=== PATIENT | male | born 1965 | race Caucasian/White ===

== ENCOUNTER 2022-02-03 09:59 | Emergency (ER) | payer SELFPAY ==
[~2022-02-03] VITALS: Ht 182 cm; Wt 77.0 kg
[~2022-02-03 09:59] MED LIST: CEPH500C PO; LISINOPRIL-HCTZ; MTF500T PO
[2022-02-03] MEDS ORDERED: LIDOCAINE/EPI 1%-1:100,000 (XYLOCAINE) 10 ML INJ ONE (10:30)
[2022-02-03] MEDS ORDERED: LIDOCAINE/EPI 1%-1:100,000 (XYLOCAINE) 10 ML ONE (10:53)
--- NOTE | 2022-02-03 11:39 | ED General ---
General Chief Complaint: Laceration Stated Complaint: LIP LAC Nursing Triage Note: pt states he was cutting some metal and a piece flew up and hit him in the lip, 1 cm lac on lower lip and a smaller puncture wound on upper lip, pt has false teeth. Source of Information: Patient Exam Limitations: No Limitations History of Present Illness Date Seen by Provider: Feb 03, 2022 Time Seen by Provider: 10:10 Initial Comments This is a 56-year-old gentleman presents to the emergency room with injury to his upper and lower lip on the right. He was cutting some quarter inch metal when a chunk flew off and struck him in the face causing the lacerations. He reports being up-to-date on his tetanus immunizations. There is no significant bleeding at time of arrival. He denies any other injuries. He has no suspicion of foreign body. Allergies and Home Medications Allergies Coded Allergies: No Known Drug Allergies (Unverified , 05/06/13) Patient Home Medication List Home Medication List Reviewed: Yes Amoxicillin (Amoxicillin) 500 Mg Capsule, 1,000 MG PO BID Prescribed by: BONNIE MCMANUS on 02/03/22 1142 Cephalexin Monohydrate (Cephalexin) 500 Mg Capsule, 1 EACH PO QID Prescribed by: MALVIN JAY on 05/06/13 192 Metformin Hcl (Metformin 500 Mg) 500 Mg Tablet, 1 EACH PO BID WITH MEALS, (Reported) Entered as Reported by: MARLENA OWEN on 05/06/131816 [Lisinopril-Hctz] , (Reported) Entered as Reported by: MARLENA OWEN on 05/06/131816 Review of Systems Review of Systems Constitutional: no symptoms reported EENTM: see HPI Respiratory: no symptoms reported Cardiovascular: no symptoms reported Gastrointestinal: no symptoms reported Genitourinary: no symptoms reported Musculoskeletal: no symptoms reported Skin: see HPI Psychiatric/Neurological: No Symptoms Reported Past Sewcjwb-Hepttt-Hwyhyx Hx Patient Social History Tobacco Use?: Yes Tobacco type used: Cigarettes Substance use?: No Alcohol Use?: Yes Alcohol type: Hard Liquor Alcohol Frequency: Once in a while Immunizations Up To Date Tetanus Booster (TDap): Less than 5yrs Third COVID19 Vaccination Date: 10/2021 Past Medical History Surgeries: Yes Abdominal (Hernia) Respiratory: No Cardiac: Yes Hypertension Neurological: No Reproductive Disorders: No Genitourinary: No Gastrointestinal: No Musculoskeletal: No Endocrine: Yes Diabetes, Non-Insulin dep HEENT: No Cancer: No Psychosocial: No Family Medical History No Pertinent Family Hx Physical Exam Vital Signs Vital Signs - First Documented 02/03/22 10:12 Temp 36.2 Pulse 76 Resp 18 B/P (MAP) 169/97 (121) Pulse Ox 96 O2 Delivery Room Air Capillary Refill : Less Than 3 Seconds Height, Weight, BMI Height: '" Weight: lbs. oz. kg; 23.00 BMI Method:Stated General Appearance: No Apparent Distress, WD/WN HEENT: PERRL/EOMI, Other (5 mm laceration on the right upper lip crossing the vermilion border slightly. 2 cm laceration on the right lower lip extending from the skin beneath the lip up through the vermilion border and into the oral mucosa.) Neck: Normal Inspection Respiratory: Normal Breath Sounds, No Respiratory Distress Extremity: Normal Inspection Neurologic/Psychiatric: Alert, Oriented x3, No Motor/Sensory Deficits, Normal Mood/Affect, paediatrician II-XII Norm as Tested Skin: Normal Color, Warm/Dry, Other (See above) Procedures/Interventions Wound Location: Face Other Wound Location Right lower lip Wound Length (cm): 2 Wound's Depth, Shape: linear, irregular, sub Q Wound Explored: clean Irrigated w/ Saline (ccs): 60 Betadine Prep?: Yes Anesthesia: Lidocaine w/ Epi Volume Anesthetic (ccs): 1 Suture: Plain, Prolene Suture Size: 4-0, 5-0 Number of Sutures: 5 Layer Closure?: 1 Progress Open wound was sprayed with lidocaine with epinephrine. Skin was then cleaned with alcohol and injection of lidocaine with epinephrine was used for local anesthetic. Wound was then irrigated with sterile water. Betadine was then applied to all but the mucosal surface. Wound was then approximated with interrupted sutures starting with two 5-0 Prolene sutures on the skin surface. Then 3 rapid dissolving gut sutures were placed on the mucosal side. Great care was taken to line up the vermilion border and the edges of the mucosal surface with accuracy. This proved to be a difficult task as some of the epithelium was shaved away making strict identification of the vermilion border difficult. Patient was informed that these landmarks may not be perfectly aligned as a result. Wound Location: Face Other Wound Location Right upper lip Wound Length (cm): 0.5 Wound's Depth, Shape: linear Wound Explored: clean Irrigated w/ Saline (ccs): 60 Betadine Prep?: Yes Anesthesia: Lidocaine w/ Epi Volume Anesthetic (ccs): 1 Suture: Prolene Suture Size: 5-0 Number of Sutures: 1 Layer Closure?: 1 Sterile Dressing Applied?: No Progress Wound was sprayed with lidocaine with epinephrine. Skin was then cleaned with alcohol and local anesthetic was injected using lidocaine with epinephrine. Wound was then irrigated and cleaned. Betadine was applied. A single suture was placed to approximate this wound using 5-0 Prolene. Progress/Results/Core Measures Suspected Sepsis SIRS Temperature: Pulse: 76 Respiratory Rate: 18 Blood Pressure 169 /97 Mean: 121 Results/Orders My Orders Orders - BONNIE FELIX MD Lidocaine/Epi 1% 1:100,000 (Xylocaine 1% (02/03/22 10:30) Lidocaine/Epi 1% 1:100,000 (Xylocaine 1% (02/03/22 10:53) Medications Given in ED Current Medications Medications Dose Ordered Sig/Simón Route Start Time Stop Time Status Last Admin Dose Admin Lidocaine/ Epinephrine 10 ml ONCE ONCE INJ 02/03/22 10:30 02/03/22 10:31 DC 02/03/22 11:10 10 ML Vital Signs/I&O 02/03/22 02/03/22 10:12 11:40 Temp 36.2 36.2 Pulse 76 76 Resp 18 18 B/P (MAP) 169/97 (121) 169/97 Pulse Ox 96 96 O2 Delivery Room Air Room Air Capillary Refill : Less Than 3 Seconds Blood Pressure Mean: 121 Departure Impression Primary Impression: Laceration of lip Qualified Codes: S01.511A - Laceration without foreign body of lip, initial encounter Additional Impression: Laceration of face Qualified Codes: S01.81XA - Laceration without foreign body of other part of head, initial encounter Disposition: 01 HOME, SELF-CARE Condition: Improved Departure-Patient Inst. Decision time for Depature: 11:33 Referrals: FROYLAN MONTEZ MD (PCP/Family) Primary Care Physician Patient Instructions: Laceration Repair With Stitches ED Add. Discharge Instructions: Keep the wounds clean and dry as much as possible except for normal showering. Do not submerge until the wounds are healed and sutures have been removed. For the next few days be careful not to open your mouth wider than is necessary. Anytime you eat or drink anything other than water, rinse your mouth with water afterward to avoid any particulate matter from getting into the wound. Avoid anything that is spicy, acidic such as citrus, or salty as these items may burn the irritated wound edges. You may use Tylenol and/or ibuprofen for pain. Monitor for signs of infection such as increasing redness, increasing swelling, puslike drainage, or fever. Return to care promptly if you notice these symptoms. Complete the antibiotics as prescribed to prevent infection since this wound could not be repaired completely under sterile conditions inside the mouth. The 3 sutures on the inner part of your lip will dissolve. Until then, you may feel a slight poking sensation from the tips of those sutures. Try your best not to disrupt them. You may place a piece of cotton gauze or other soft material between your lips to avoid the poking sensation. Expect the wound to ooze some blood and clear yellow fluid for the next 48 hours. This is normal during the healing process. The edge of your lips where the white skin and pink skin merge is called the vermilion border. Dr. Felix lined up the vermilion borders as much as possible, but that process was difficult as some of the skin was shaved off and the true edge of the vermilion border could not be visualized during repair. Avoid direct sunlight for the first few months while the skin heals and scarring dissipates. This will prevent discoloration of the scarring skin. There will be some degree of permanent scarring from these injuries. Call with questions or concerns. You may return to the ER at any time to have your wounds checked or evaluated at no charge. Return in 6 or 7 days to have the 3 external sutures removed. All discharge instructions reviewed with patient and/or family. Voiced understanding. Scripts Amoxicillin (Amoxicillin) 500 Mg Capsule 1000 MG PO BID, #20 CAP 0 Refills Prov: BONNIE FELIX MD 02/03/22 BONNIE FELIX MD Feb 03, 2022 11:39
[2022-02-03 11:40] VITALS: BP 169/97
[2022-02-03] MEDS ORDERED: AMOX500C2 PO (11:42)
== END 2022-02-03 11:40 | disposition home or self-care (01) ==
LOC: EDUNIT# 09:59 → ER 10:01
DX: S01.511A Laceration without foreign body of lip, initial encounter (principal); W22.8XXA Striking against or struck by other objects, initial encounter
CPT/HCPCS: 40650

== ENCOUNTER 2022-02-10 05:06 | Emergency (ER) | payer SELFPAY ==
[~2022-02-10] VITALS: Ht 183 cm; Wt 77.3 kg
[~2022-02-10 05:06] MED LIST changes: +AMOX500C2 PO
[2022-02-10 05:47] VITALS: BP 164/92
== END 2022-02-10 05:55 | disposition home or self-care (01) ==
LOC: EDUNIT# 05:06 → ER 05:08
DX: Z48.02 Encounter for removal of sutures (principal)